=== PATIENT | male | born 1950 | race Caucasian/White ===

== ENCOUNTER → 2017-12-23 | Outpatient (CLI) | payer BC ==
[~2017-12-23] MED LIST: ULTRAM50 MG PO; ZESTRIL10 MG PO; ZOCOR20 MG PO
== END | disposition home or self-care (01) ==
LOC: OPR 07:51 → EDSTATUS 08:00
PROC: 0TB13ZX Excision of Left Kidney, Percutaneous Approach, Diagnostic (ICD-10-PCS; principal; 2017-12-23)
DX: C64.2 Malignant neoplasm of left kidney, except renal pelvis (principal)
CPT/HCPCS: 77012; 88305; J3010